=== PATIENT | male | born 1955 | race Caucasian/White ===

== ENCOUNTER 2022-05-05 11:18 | Inpatient (IN) | payer MEDICARE, SELFPAY ==
--- NOTE | ~2022-05-05 | US_ITS ---
EXAMINATION: US venous doppler LE RT DATE: 05/05/2022 13:51 INDICATION: Right lower limb swelling. TECHNIQUE: Grayscale ultrasound images without and with compression and Doppler ultrasound images of the right lower extremity veins were obtained. COMPARISON: None. FINDINGS: The visualized portions of right common femoral vein, profunda (deep) femoral vein, femoral vein, pop liteal vein, posterior tibial veins, and greater saphenous vein outflow are patent. IMPRESSION: 1. No deep venous thrombosis. Reviewed, dictated and finalized at location A.
[2022-05-05 11:20] VITALS: BP 122/82; PULSE 73; RESP 16; TEMP 36.1; O2SAT 97
--- NOTE | 2022-05-05 11:41 | ED.LOWEXIN ---
HPI - Extremity Injury (Lower) General Chief Complaint: Skin/Abscess/Foreign Body Stated Complaint: Right leg possibe cellulitis m Source: patient Mode of arrival: ambulatory History of Present Illness HPI Narrative: 66M with history of industrial accident status post left nephrectomy/splenectomy / intra-abdominal bleeding status post surgery, atrial fibrillation on Coumadin, rheumatoid arthritis with Equinovalgus deformity and ulnar deviation of the hand on chloroquine and certolizumab developed right leg cellulitis for which she was treated with IV antibiotics including IV vancomycin. Yesterday he drove from [facility] and was noted to have -- redness and swelling of the right big toe, right leg and distal thigh. No pain. -- Low-grade fever. No chest pain or shortness of breath. Onset (ago): day(s) ( Started yesterday) Relieving factors: nothing Exacerbating factors: nothing Related Data Home Medications Medication Instructions Recorded Confirmed furosemide 40 mg tablet 40 mg PO DAILY 05/05/22 05/05/22 gabapentin 600 mg tablet 1,200 mg PO BID 05/05/22 05/05/22 hydroxychloroquine 200 mg tablet 200 mg PO BID 05/05/22 05/05/22 metoprolol succinate 200 mg 200 mg PO DAILY 05/05/22 05/05/22 tablet,extended release 24 hr oxycodone-acetaminophen 10 mg-325 1 tablet PO Q4-6H PRN Pain 05/05/22 05/05/22 mg tablet prednisone 5 mg tablet 5 mg PO DAILY 05/05/22 05/05/22 warfarin 5 mg tablet 5 mg PO DAILY 05/05/22 05/05/22 Allergies Allergy/AdvReac Type Severity Reaction Status Date / Time No Known Allergies Allergy Verified 05/05/22 11:44 Review of Systems Review of Systems: All systems reviewed & are unremarkable except as noted in HPI and below Constitutional: Constitutional: Reports as per HPI and Reports no additional constitutional complaints Eyes: Eyes: Reports as per HPI and Reports no additional eye complaints ENT: Reports system reviewed and no additional complaints, except as documented and Reports as per HPI Cardiovascular: Cardiovascular: Reports as per HPI and Reports no additional cardiovascular complaints Respiratory: Respiratory: Reports as per HPI and Reports no additional respiratory complaints Gastrointestinal: Gastrointestinal: Reports as per HPI and Reports no additional gastrointestinal complaints Genitourinary: Genitourinary: Reports no additional male genitourinary complaints Musculoskeletal: Musculoskeletal: Reports no additional musculoskeletal complaints, Reports arthralgias and Reports joint swelling Comments: joint pains with deformity for the last 20 years Integumentary/Breasts: Skin/Breast: Reports system reviewed and no additional complaints, except as docu Comments: redness and swelling of the right big toe, right leg and distal right thigh Neurologic: Reports system reviewed and no additional complaints, except as documented Psychiatric: Psychiatric: Reports no additional psychiatric complaints and Reports as per HPI Endocrine: Endocrine: Reports no additional endocrine complaints and Reports as per HPI Hematologic/Lymphatic: Hematologic/Lymphatic: Reports no additional hematologic/lymphatic complaints and Reports as per HPI Allergic/Immunologic: Allergic/Immunologic: Reports no additional allergic/immunologic complaints and Reports as per HPI [facility] Surgical History Surgical History H/O splenectomy History of nephrectomy Exam Const: General: no acute distress Orientation/consciousness: patient oriented x3 Limitations: no limitations HENMT: Head: normal to inspection Ears: external ears normal General nose exam: Normal external nose present Face and sinus: normal facial exam Mouth: Yes Normal oral and palatal mucosa present Throat: posterior oropharynx normal Eyes: Conjunctivae: conjunctivae normal Pupils: Equal, round and reactive pupils present EOM: EOMs intact bilaterally Neck: Nec
--- NOTE | 2022-05-05 12:12 | ECG_ITS ---
Measurements Intervals [place] Rate: 62 P: MN: 0 QRS: -76 QRSD: 160 T: 16 QT: 414 QTc: 422 Interpretive Statements ATRIAL FIBRILLATION WITH ABERRANT CONDUCTION OR VENTRICULAR PREMATURE COMPLEXES BASELINE ARTIFACT RIGHT BUNDLE BRANCH BLOCK LEFT ANTERIOR FASCICULAR BLOCK CANNOT RULE OUT INFERIOR MYOCARDIAL INFARCTION , OF INDETERMINATE AGE ABNORMAL ECG NO PREVIOUS ECG AVAILABLE FOR COMPARISON Electronically Signed On 05-05-2022 15:31:20 CDT by Humza Mae M.D.
[2022-05-05 12:37] LABS: Basophils Absolute Auto 0.07 K/mm3 (0.00-0.10); Basophils Percent Auto 0.4 % (0.0-1.0); Eosinophils Absolute Auto 0.12 K/mm3 (0.02-0.50); Eosinophils Percent Auto 0.8 % (1.0-6.0); Hematocrit 45.2 % (37.0-46.0); Hemoglobin 14.9 g/dL (12.4-15.3); Immature Granulocyte Absolute 0.05 K/mm3 (0.00-0.00); Immature Granulocyte Percent A 0.3 % (0.0-0.0); Lymphocytes Absolute Auto 1.45 K/mm3 (1.10-4.50); Lymphocytes Percent Auto 9.3 % (18.0-42.0); Mean Corpuscular Hemoglobin 34.3 pg (27.0-31.0); Mean Corpuscular Volume 103.9 fL (78.0-102.0); Mean Platelet Volume 11.1 fl (8.7-11.0); Monocytes Absolute Auto 1.69 K/mm3 (0.10-0.90); Monocytes Percent Auto 10.8 % (2.0-11.0); Neutrophils Absolute Auto 12.3 K/mm3 (1.7-7.2); Neutrophils Percent Auto 78.4 % (50.0-70.0); Platelet Count Result 211 K/mm3 (150-420); Red Blood Count 4.35 M/mm3 (4.70-6.10); Red Cell Distribution Width 14.6 % (11.6-14.4); White Blood Count 15.7 K/mm3 (4.8-10.8)
--- NOTE | 2022-05-05 12:43 | PC.NURSE ---
PT WATCHING TV IN EXAM ROOM WITH AT BEDSIDE. WATER PROVIDED TO PT AND . PT DENIES ANY NEEDS OR COMPLAINTS. NAD NOTED. WILL CONTINUE TO MONITOR. PT IS AWAITING RESULTS AT THIS TIME.
[2022-05-05 12:52] LABS: INR 2.1; Partial Thromboplastin Time 35.6 SEC (23.90-30.70); Prothrombin Time 21.9 Seconds (9.50-12.10)
[2022-05-05 12:58] LABS: D Dimer 0.53 mg/L (0.19-0.50)
[2022-05-05 13:03] LABS: Lactic Acid Reflex 1.8 mmol/L (0.4-2.0)
[2022-05-05 13:06] LABS: Alanine Aminotransferase 15 U/L (16-63); Albumin Level 3.2 g/dL (3.4-5.0); Alkaline Phosphatase 78 U/L (46-116); Anion Gap 8 mmol/L (8-16); Aspartate Amino Transferase 23 U/L (15-37); Bilirubin,Total 0.7 mg/dL (0.00-1.00); Blood Urea Nitrogen 16 mg/dL (7-18); Carbon Dioxide 28 mmol/L (21-32); Chloride 103 mmol/L (98-108); Estimated CRCL calculation 85 ml/min; Estimated Glomerular Filt Rate > 60; Glucose 109 mg/dL (70-99); Lipase 64 U/L (73-393); Magnesium 2.2 mg/dL (1.8-2.4); NT Pro B Type Natriuretic Pept 1372 pg/mL (0-125); Osmolality Calculated 290 mOsm/kg (285-295); Potassium 4.1 mmol/L (3.5-5.1); Sodium 139 mmol/L (136-145); Total Protein 7.2 g/dL (6.4-8.2); Troponin I 33.6 ng/L (0.00-60.4)
[2022-05-05 13:12] VITALS: BP 109/64; PULSE 64; RESP 16; TEMP 36.2; O2SAT 98
[2022-05-05] MEDS: AMPICILLIN SULB 3 GM/NS 100 ML 3 GM/100 ML VIAL IVPB ×3 (13:19→23:40)
--- NOTE | 2022-05-05 13:29 | PC.NURSE ---
PT HAS IV MEDICATION INFUSING ORDERED WITHOUT DIFFICULTY. HAS LEFT TO GET PT SOMETHING TO EAT. PT TO US AT THIS TIME. WILL CONTINUE TO MONITOR.
--- NOTE | 2022-05-05 14:11 | PC.NURSE ---
pt returned from us, has returned with food. iv medication completed and vancomycin started. pt is awaiting results of US. will continue to monitor.
--- NOTE | 2022-05-05 14:38 | PC.NURSE ---
erp speaking with hospitalist at this time.
--- NOTE | 2022-05-05 14:57 | PC.NURSE ---
pt is to be admitted to room 209.
[2022-05-05 15:02] VITALS: BP 105/64; PULSE 64; RESP 14; O2SAT 98
--- NOTE | 2022-05-05 15:15 | PC.NURSE ---
Patient arrived to unit via w/c from ER, accompanied by ER staff and patient's . Patient able to transfer without assist with cane from w/c to bed. Cellulitis noted on RLE and marked with skin marker. Patient requires special shoes to ambulate, but is steady on his feet.
--- NOTE | 2022-05-05 15:20 | PC.NURSE ---
Patient has no valuables or medications in his possession on admit.
[2022-05-05 15:34] VITALS: BMI 29.8
--- NOTE | 2022-05-05 15:35 | PC.NURSE ---
Patient was admitted with standard isolation precautions and not contact
[2022-05-05] MEDS: HYDROXYCHLOROQUINE SULFATE 200 MG TABLET PO (16:57)
[2022-05-05] MEDS: WARFARIN (*PBKC) 5 MG TABLET PO (16:57)
[2022-05-05] MEDS: GABAPENTIN 400 MG CAPSULE 1200 MG PO (21:04)
[2022-05-05] MEDS: HYDROcodone/acetaminophen (*CRX) 10-325 MG TABLET 1 TAB PO (21:04)
[2022-05-05 23:59] VITALS: BP 106/55; PULSE 72; RESP 16; TEMP 36.4; O2SAT 95
[2022-05-06 05:29] LABS: Hematocrit 43.5 % (37.0-46.0); Mean Corpuscular HGB Conc 32.2 g/dL (32.0-36.0); Mean Corpuscular Hemoglobin 34.2 pg (27.0-31.0); Mean Corpuscular Volume 106.4 fL (78.0-102.0); Mean Platelet Volume 11.1 fl (8.7-11.0); Platelet Count Result 170 K/mm3 (150-420); Red Blood Count 4.09 M/mm3 (4.70-6.10); Red Cell Distribution Width 14.7 % (11.6-14.4); White Blood Count 11.4 K/mm3 (4.8-10.8)
[2022-05-06] MEDS: AMPICILLIN SULB 3 GM/NS 100 ML 3 GM/100 ML VIAL IVPB ×4 (05:34→23:20)
[2022-05-06 05:42] LABS: Prothrombin Time 20.9 Seconds (9.50-12.10)
[2022-05-06 05:44] LABS: Alanine Aminotransferase 12 U/L (16-63); Albumin Level 2.7 g/dL (3.4-5.0); Alkaline Phosphatase 81 U/L (46-116); Anion Gap 6 mmol/L (8-16); Aspartate Amino Transferase 25 U/L (15-37); Bilirubin,Total 0.4 mg/dL (0.00-1.00); Blood Urea Nitrogen 15 mg/dL (7-18); Calcium 8.9 mg/dL (8.5-10.1); Carbon Dioxide 28 mmol/L (21-32); Chloride 107 mmol/L (98-108); Estimated CRCL calculation 95 ml/min; Estimated Glomerular Filt Rate > 60; Glucose 98 mg/dL (70-99); Magnesium 2.3 mg/dL (1.8-2.4); Osmolality Calculated 292 mOsm/kg (285-295); Sodium 141 mmol/L (136-145); Total Protein 6.6 g/dL (6.4-8.2)
[2022-05-06] MEDS: HYDROcodone/acetaminophen (*CRX) 10-325 MG TABLET 1 TAB PO ×3 (07:50→22:05)
[2022-05-06 08:00] VITALS: BP 138/83; PULSE 85; RESP 16; TEMP 36.6; O2SAT 95
--- NOTE | 2022-05-06 08:17 | PM.IMHP ---
H&P: HPI History of Present Illness Date/Time: 05/06/22 08:17 Chief Complaint: Right leg swelling and erythema with warmth and pain Narrative: Per emergency room noted 66M? with history of? industrial accident status post left nephrectomy/splenectomy / intra-abdominal bleeding status post surgery, atrial fibrillation on Coumadin, rheumatoid arthritis with Equinovalgus deformity and ulnar deviation of the hand on chloroquine and? certolizumab developed right leg cellulitis for which she was treated with IV antibiotics including IV vancomycin.? Yesterday he drove from [place] To [facility] and was noted to have -- redness and swelling of the right big toe, right leg and distal thigh.? No pain. This is a 66 year old male that notice on Wednesday that his leg started to get red he was driving from the [facility] and he noticed that his leg was red and warm . Patient decided to come in to the hospital. Patient has a past medical history of Nephrectomy and currently has one kidney and has had a splenectomy he has Rheumatoid Arthritis and is on medication which has him immunocompromised. Patient currently only has back pain due to arthritis and does not have any real pain in the leg at this time. Pt has extremity deformity noted in hand and left foot. patient labs this morning potassium 4.0, sodium 141, BUN 15, creatinine 0.08, RBCs 4.09, with WBCs 11.4, hemoglobin 14.0, [place]ema[place] 43.5, platelets 170. At this time we will continue vancomycin and Zosyn and continue to monitor with improvement of patient's cellulitis. Daily labs will continue to be monitored INR we will follow patient progression. If no improvement we may need to consult at another facility at this time patient is stable. Review of Systems Review of Systems: right leg swelling and erythema All systems reviewed & are unremarkable except as noted in HPI and below PMFSH Surgical History Surgical History H/O splenectomy History of nephrectomy Social History Social History Smoking packs per day: 1 Smoking cigarettes per day: 20.0 Years smoked: 24 Smoking pack-years: 24.00 Smoking status: Former smoker Tobacco type: cigarettes Second hand tobacco smoke exposure: No Smoking end date: 08/02/80 Alcohol intake: never Substance use: never Substance use type: does not use Spiritual care concerns: No Comments At time as signature, I have reviewed and agree with nursing past medical, social, surgical and family history. Please see nursing chart for further information. There is no relevant family history pertinent to the presenting complaint. Meds Home Medications and Allergies Home Medications Medication Instructions Recorded Confirmed Type furosemide 40 mg tablet 40 mg PO DAILY 05/05/22 05/05/22 History gabapentin 600 mg tablet 1,200 mg PO BID 05/05/22 05/05/22 History hydroxychloroquine 200 mg tablet 200 mg PO BID 05/05/22 05/05/22 History metoprolol succinate 200 mg 200 mg PO DAILY 05/05/22 05/05/22 History tablet,extended release 24 hr oxycodone-acetaminophen 10 mg-325 1 tablet PO Q4-6H PRN Pain 05/05/22 05/05/22 History mg tablet prednisone 5 mg tablet 5 mg PO DAILY 05/05/22 05/05/22 History warfarin 5 mg tablet 5 mg PO DAILY 05/05/22 05/05/22 History Allergies Allergy/AdvReac Type Severity Reaction Status Date / Time No Known Allergies Allergy Verified 05/05/22 11:44 Vital Signs Vital Signs - 24 hr 05/05/22 11:20 05/05/22 13:12 05/05/22 15:02 Temperature 96.9 F L 97.2 F L Pulse Rate 73 64 64 Respiratory Rate 16 16 14 Blood Pressure 122/82 109/64 105/64 Pulse Oximetry 97 98 98 Oxygen Delivery Room Air Room Air Room Air 05/05/22 23:59 05/06/22 08:00 Temperature 97.6 F 97.8 F Pulse Rate 72 85 Respiratory Rate 16 16 Blood Pressure 106/55 L 138/83 Pulse Oximetry 95 95 Oxygen Delivery CPAP Room Air
[2022-05-06] MEDS: GABAPENTIN 400 MG CAPSULE 1200 MG PO ×2 (09:00→20:03)
[2022-05-06 09:01] VITALS: PULSE 85
[2022-05-06] MEDS: predniSONE 5 MG TABLET PO (09:01)
[2022-05-06] MEDS: FUROSEMIDE 40 MG TABLET PO (09:01)
[2022-05-06] MEDS: METOPROLOL SUCCINATE EXT REL 50 MG TABCR 200 MG PO (09:01)
[2022-05-06] MEDS: HYDROXYCHLOROQUINE SULFATE 200 MG TABLET PO ×2 (09:02→16:29)
[2022-05-06] MEDS: SACCHAROMYCES BOULARDII 250 MG CAPSULE PO ×2 (09:03→16:29)
--- NOTE | 2022-05-06 11:50 | P.PNCROSS_ITS ---
Event Note Event Note Event Note: Spoke with Infectious disease pharmacist patient is on the right regime of anti biotics plan is for pt to either be placed on oral tomorrow or Wednesday with improvemnt or remove [address] on oral Wednesday .
[2022-05-06 16:00] VITALS: BP 141/75; PULSE 90; RESP 14; TEMP 36.6; O2SAT 93
[2022-05-06] MEDS: WARFARIN (*PBKC) 5 MG TABLET PO (16:29)
[2022-05-06 23:04] VITALS: BP 123/65; PULSE 63; RESP 15; TEMP 36.7; O2SAT 98
[2022-05-07 01:44] LABS: Vancomycin Trough 13.5 ug/mL (10.0-15.0)
[2022-05-07 05:14] LABS: Hematocrit 40.8 % (37.0-46.0); Hemoglobin 13.5 g/dL (12.4-15.3); Mean Corpuscular HGB Conc 33.1 g/dL (32.0-36.0); Mean Corpuscular Hemoglobin 34.4 pg (27.0-31.0); Mean Corpuscular Volume 104.1 fL (78.0-102.0); Mean Platelet Volume 10.9 fl (8.7-11.0); Platelet Count Result 187 K/mm3 (150-420); Red Blood Count 3.92 M/mm3 (4.70-6.10); Red Cell Distribution Width 14.7 % (11.6-14.4); White Blood Count 9.8 K/mm3 (4.8-10.8)
[2022-05-07 05:24] LABS: Anion Gap 5 mmol/L (8-16); Blood Urea Nitrogen 12 mg/dL (7-18); Calcium 8.5 mg/dL (8.5-10.1); Carbon Dioxide 31 mmol/L (21-32); Chloride 108 mmol/L (98-108); Estimated CRCL calculation 97 ml/min; Estimated Glomerular Filt Rate > 60; Glucose 99 mg/dL (70-99); Osmolality Calculated 297 mOsm/kg (285-295); Potassium 3.7 mmol/L (3.5-5.1); Sodium 144 mmol/L (136-145)
[2022-05-07 05:28] LABS: Prothrombin Time 21.1 Seconds (9.50-12.10)
[2022-05-07] MEDS: AMPICILLIN SULB 3 GM/NS 100 ML 3 GM/100 ML VIAL IVPB (05:55)
[2022-05-07] MEDS: HYDROcodone/acetaminophen (*CRX) 10-325 MG TABLET 1 TAB PO ×3 (06:11→19:48)
--- NOTE | 2022-05-07 07:06 | PM.IMPN ---
Progress Note: A&P Assessment and Plan (1) Rheumatoid arthritis: Code(s): M06.9 - Rheumatoid arthritis, unspecified Status: Acute Assessment and Plan: Continue your home medication treat pain Pt/Ot (2) Atrial fibrillation: Code(s): I48.91 - Unspecified atrial fibrillation Status: Acute Assessment and Plan: continue to monitor heart rate controlled continue on anticoagulation Coumadin monitor INr (3) Cellulitis, leg: Code(s): L03.119 - Cellulitis of unspecified part of limb Status: Acute Assessment and Plan: IV antibiotic Zosyn D/c today Continue IV Vancomycin Elevate leg monitor improvement Spoke with infectious disease pharmacist yesterday this plan for patient care plan for discharge in the am Subjective Date/time seen: 05/07/22 07:06 Interval history: Mr. Cooper leg is showing great improvement and the erythema is decreasing with swelling going down. Patient states his leg feel less tight and he has remained afebrile he is able to eat and drink. Today we will d/c Ampicillin continue on the Vancomycin today and then we will place him on PO in the morning and discharge him. According to patient he has a to go to in [place] and will need to leave tomorrow as he is driving back. Review of Systems Review of Systems: left leg swelling and erythema All systems reviewed & are unremarkable except as noted in HPI and below Exam Narrative: GENERAL:Well-appearing, well-nourished, and in no acute distress. HEAD:Normocephalic, atraumatic. EYES: PERRLA and EOMI. ENT: Nares clear, no rhinorrhea or epistaxis. Mucous membranes moist. CHEST: Clear to auscultation. No respiratory distress. HEART: Regular rate and rhythm. Normal peripheral pulses. ABDOMEN: Soft, nontender, nondistended, normal active bowel sounds.surgical scar noted EXTREMITIES: decreased range of motion. 1+ edema right leg swollen with erythema and warmth noted up to the thigh left leg is swollen and foot is deformed and almost flaccid with surgical scar noted SKIN: Warm, dry, no rash. NEURO: No focal deficits. Alert and oriented x3. Objective Data Vital Signs Vital Signs: Vital Signs - 24 hr 05/06/22 08:00 05/06/22 09:01 05/06/22 16:00 Temperature 97.8 F 97.8 F Pulse Rate 85 85 90 Respiratory Rate 16 14 Blood Pressure 138/83 141/75 H Pulse Oximetry 95 93 Oxygen Delivery Room Air Room Air 05/06/22 23:04 Temperature 98.1 F Pulse Rate 63 Respiratory Rate 15 Blood Pressure 123/65 Pulse Oximetry 98 Oxygen Delivery Room Air Intake/Output Intake/Output: Intake & Output 05/04/22 05/05/22 05/06/22 05/07/22 23:59 23:59 23:59 23:59 Intake Total 1340 3070 1880 Output Total 552 450 Balance 1340 2518 1430 Meds/Results Medications: Active Medications Generic Name Dose Route Start Last Admin Trade Name Freq PRN Reason Stop Dose Admin Acetaminophen 650 mg 05/05/22 14:51 Acetaminophen 325 Mg Tablet PO Q4H PRN Mild Pain (1-3) or Fever Hydrocodone Bitart/Acetaminophen 1 tab 05/05/22 15:17 05/07/22 06:11 Hydrocodone/Acetaminophen (*Crx) 10-325 Mg Tablet PO 1 tab Q6H PRN Administration Pain Rated 7-10 Al Hydrox/Mg Hydrox/Simethicone 30 ml 05/05/22 14:51 Mag Hydrox/Al Hydrox/Simeth 30 Ml Udc PO QID PRN Dyspepsia Furosemide 40 mg 05/06/22 09:00 05/06/22 09:01 Furosemide 40 Mg Tablet PO 40 mg DAILY JUDIT Administration Gabapentin 1,200 mg 05/05/22 21:00 05/06/22 20:03 Gabapentin 400 Mg Capsule PO 1,200 mg Q12HR JUDIT Administration Hydroxychloroquine Sulfate 200 mg 05/05/22 17:00 05/06/22 16:29 Hydroxychloroquine Sulfate 200 Mg Tablet PO 200 mg BID JUDIT Administration Vancomycin HCl 1,500 mg in 500 mls @ 333.333 mls/hr 05/06/22 02:00 05/07/22 04:37 Vancomycin 1,500 Mg/D5w 500 Ml IVPB Infused Q12H JUDIT Infusion Lorazepam 1 mg 05/05/22 15:17
[2022-05-07 07:36] VITALS: BP 118/73; PULSE 65; RESP 16; TEMP 36.1; O2SAT 95
[2022-05-07] MEDS: GABAPENTIN 400 MG CAPSULE 1200 MG PO ×2 (08:45→21:16)
[2022-05-07 08:46] VITALS: PULSE 65
[2022-05-07] MEDS: METOPROLOL SUCCINATE EXT REL 50 MG TABCR 200 MG PO (08:46)
[2022-05-07] MEDS: HYDROXYCHLOROQUINE SULFATE 200 MG TABLET PO ×2 (08:46→17:37)
[2022-05-07] MEDS: FUROSEMIDE 40 MG TABLET PO (08:47)
[2022-05-07] MEDS: SACCHAROMYCES BOULARDII 250 MG CAPSULE PO ×2 (08:48→17:37)
[2022-05-07] MEDS: predniSONE 5 MG TABLET PO (08:48)
[2022-05-07 16:30] VITALS: BP 139/85; PULSE 64; RESP 18; TEMP 36.3; O2SAT 97
[2022-05-07] MEDS: WARFARIN (*PBKC) 5 MG TABLET PO (17:37)
[2022-05-07 23:05] VITALS: BP 134/86; PULSE 66; RESP 16; TEMP 36.4; O2SAT 96
--- NOTE | 2022-05-08 07:24 | PM.DS ---
DS: Admitting Diagnosis Discharge Date 05/08/2022 Admitting Diagnosis Cellulitis DS: Discharge Diagnosis Discharge Diagnosis (1) Rheumatoid arthritis: Code(s): M06.9 - Rheumatoid arthritis, unspecified Status: Acute Assessment and Plan: Continue your home medication treat pain Pt/Ot (2) Atrial fibrillation: Code(s): I48.91 - Unspecified atrial fibrillation Status: Acute Assessment and Plan: continue to monitor heart rate controlled continue on anticoagulation Coumadin monitor INr (3) Cellulitis, leg: Code(s): L03.119 - Cellulitis of unspecified part of limb Status: Acute Assessment and Plan: IV antibiotic Zosyn D/c today Continue IV Vancomycin Elevate leg monitor improvement Spoke with infectious disease pharmacist yesterday this plan for patient care plan for discharge in the am DS: Summary Hospital Course Reason for hospitalization: Cellulitis Hospital Course: This is a 66 year old male that came into the emergency room with 2 days of swelling and erythema to his right foot he was found to have Cellulitis which is recurrent . Patient has a past medical history of RA and diabetes Nephrectomy. Patient was treated with 4 days of IV Antibiotic , IV fluids. Patient leg has progressively improved with majority of the erythema improved and his swelling has significantly decreased. Patient is being discharged and has remained a febrile with stable vitals. He has been instructed to follow up with his PCP and to take all of his medication even if his symptoms seem to be totally gone. Patient labs on discharge were potassium 3.7 sodium 144, BUN 12, creatinine 0.78, RBCs 3.92, WBCs 9.8, hemoglobin 13.5, [place] 40.8, and platelets 187. Patient denies any pain as he has neuropathy and never really has had much pain but states his leg feels less tight. Time Spent with Patient Time attestation: Total time spent providing and/or coordinating discharge services: Exam Narrative: GENERAL:Well-appearing, well-nourished, and in no acute distress. HEAD:Normocephalic, atraumatic. EYES: PERRLA and EOMI. ENT: Nares clear, no rhinorrhea or epistaxis. Mucous membranes moist. CHEST: Clear to auscultation. No respiratory distress. HEART: Regular rate and rhythm. Normal peripheral pulses. ABDOMEN: Soft, nontender, nondistended, normal active bowel sounds.surgical scar noted EXTREMITIES: decreased range of motion. trace + edema right leg with mild erythema and up the thigh left leg is swollen and foot is deformed and almost flaccid with surgical scar noted SKIN: Warm, dry, no rash. NEURO: No focal deficits. Alert and oriented x3. DS: Data Data Completed and Pending Labs on day of discharge: Preliminary micro results at discharge 05/05/22 12:30 Blood Culture - Preliminary Blood 05/05/22 12:30 Blood Culture - Preliminary Blood Discharge Plan Discharge Attending physician on discharge: Clayton Perera Discharging Clinician: Leonarda Raman Anticipated Discharge Date/Time: 05/08/22 07:07 Patient Disposition: Home, Self-Care Activity: may shower and as tolerated Diet: diabetic Patient Instructions: Antibiotic Form, Cephalexin (By mouth), Cellulitis (ED), Rheumatoid Arthritis (DC), Fall Prevention for Older Adults (GEN), Weakness (DC) Stand Alone Forms: General Discharge Information Follow-up/Referrals: UNKNOWN,DOCTOR [Primary Care Provider] - (Call and schedule your appointment with your PCP to follow up with your cellulitis) Discharge Medications: New cephalexin 500 mg capsule 500 mg PO Q12H Qty: 20 0RF Continued furosemide 40 mg tablet 40 mg PO DAILY gabapentin 600 mg tablet 1,200 mg PO BID metoprolol succinate 200 mg tablet extended release 24 hr 200 mg PO DAILY prednisone 5 mg tablet 5 mg PO DAILY oxycodone-acetaminophen 10-325 mg tablet 1 tablet PO Q4-6H P
[2022-05-08 08:00] VITALS: BP 121/88; PULSE 82; RESP 18; TEMP 36.1; O2SAT 98
[2022-05-08] MEDS: FUROSEMIDE 40 MG TABLET PO (08:06)
[2022-05-08] MEDS: METOPROLOL SUCCINATE EXT REL 50 MG TABCR 200 MG PO (08:06)
[2022-05-08] MEDS: HYDROXYCHLOROQUINE SULFATE 200 MG TABLET PO (08:07)
[2022-05-08] MEDS: predniSONE 5 MG TABLET PO (08:07)
--- NOTE | 2022-05-12 11:48 | PC.NURSE ---
Unable to contact for discharge call back.
== END 2022-05-08 09:30 | disposition home or self-care (01) | DRG 603 ==
LOC: CHSED 14:50 → CHS2ND 15:00
PROVIDERS: Nurse Practitioner; Nurse Practitioner Family; Admitting Provider Internal Medicine; Emergency Provider Internal Medicine Critical Care Medicine; Visit Provider Internal Medicine
DX: L03.115 Cellulitis of right lower limb (principal); I48.91 Unspecified atrial fibrillation; M06.9 Rheumatoid arthritis, unspecified; Z79.01 Long term (current) use of anticoagulants; Z90.81 Acquired absence of spleen; Z90.5 Acquired absence of kidney; Z87.828 Personal history of other (healed) physical injury and trauma; Z87.891 Personal history of nicotine dependence
CPT/HCPCS: 36415; 80048; 80053; 80202; 83605; 83690; 83735; 83880; 84484; 85025; 85027; 85380; 85610; 85730; 87040; 93005; 93971; 96365; 96367; 97161; 97165; 99285; A9270; J0295; J3370; J7512